=== PATIENT | female | born 1960 | race Hispanic/Latino ===

== ENCOUNTER 2024-01-10 12:01 | Inpatient (IN) | payer OTHER ==
[2024-01-10] MEDS ORDERED: dilTIAZem HCL 25 MG/5 ML VIAL IV ONE (12:23)
[2024-01-10 12:29] LABS: Absolute Lymphocytes (CBC) 1.7 K/uL (0.7-4.9); Absolute Monocytes 0.4 K/uL (0.1-1.3); Absolute Neutrophil 3.9 K/uL (1.8-8.0); Basophils % 0.6 % (0-1.3); Eosinophils % 0.4 % (0-4.4); Hematocrit 39.4 % (36.0-45.0); Lymphocytes % 28.3 % (15.3-44.8); MCH 29.8 pg (27.0-35.0); MCV 90.3 fL (80-100); MPV 8.5 fL (7.6-11.3); Monocytes % 6.7 % (3.3-12.3); Nucleated Red Blood Cells % 0.1 % (0-0); Platelets 268 thou/uL (152-406); RBC Red Blood Cell Count 4.36 M/uL (3.86-4.86); Red Cell Distribution Width 14.4 % (12.1-15.2)
[2024-01-10 12:55] LABS: Albumin 3.3 g/dL (3.4-5.0); Albumin/Globulin Ratio 0.9 (1.1-1.8); Anion Gap 10.9 mEq/L (5.0-15.0); Bilirubin Direct 0.3 mg/dL (0-0.2); Bilirubin Indirect, Calculated 0.5 mg/dL (0.2-0.8); Bilirubin Total 0.8 mg/dL (0.2-1.0); Globulin 3.8 g/dL (2.3-3.5); Magnesium 2.1 mg/dL (1.6-2.4); Potassium 3.9 mEq/L (3.5-5.1); Protein, Total 7.1 g/dL (6.4-8.2); Thyroid Stimulating Hormone 2.84 uIU/mL (0.358-3.740); Troponin High Sensitivity 20.1 pg/mL (<58.9)
--- NOTE | 2024-01-10 13:10 | RAD REPORT ---
EXAM DESCRIPTION: RAD - Chest Single View - 01/10/2024 12:55 pm CLINICAL HISTORY: CHEST PAIN COMPARISON: No comparisons FINDINGS: Lines: None. Lungs: Poorly visualized left lung base likely due to underpenetration. Prominence of the pulmonary i nterstitium. Pleural: Possible left pleural effusion. Cardiac: Cardiomegaly. Mediastinum: Within normal limits. Bones: No acute fractures. Other: None IMPRESSION: Possible pulmonary edema. The left lung base is obscured by underpenetration. Cannot exc lude either an airspace process or pleural effusion.
--- NOTE | 2024-01-10 13:28 | ER ---
Nurse's Notes [facility] Name: Debora Mckeon Age: 63 yrs Sex: Female : 1960 Arrival Date: 01/10/2024 Time: 12:01 Bed 7 Private MD: Diagnosis: New onset A-fib with rapid ventricular rate Presentation: 01/09 12:08 Chief complaint: Patient states: Pt c/o near constant, non-reproducible, non-radiating tl4 midsternal chest pressure since 01/04/24. Pt also c/o increased SOB with activity, nausea, and "dry heaving". Coronavirus screen: At this time, the client does not indicate any symptoms associated with coronavirus-19. Ebola Screen: No symptoms or risks identified at this time. Initial Sepsis Screen: Does the patient meet any 2 criteria? No. Patient's initial sepsis screen is negative. Does the patient have a suspected source of infection? No. Patient's initial sepsis screen is negative. Risk Assessment: Do you want to hurt yourself or someone else? Patient reports no desire to harm self or others. Onset of symptoms was January 04, 2024. 12:08 Method Of Arrival: EMS: [facility] tl4 12:08 Acuity: ARRON 2 tl4 Triage Assessment: 12:12 General: Appears uncomfortable, Behavior is cooperative, restless. Pain: Complains of tl4 pain in chest. EENT: No signs and/or symptoms were reported regarding the EENT system. Neuro: Level of Consciousness is awake, alert, obeys commands, Oriented to person, place, time, situation, Moves all extremities. Full function Gait is steady, Speech is normal, Facial symmetry appears normal. Cardiovascular: Reports chest pain, nausea, shortness of breath, Capillary refill < 3 seconds Patient's skin is warm and dry. Respiratory: Airway is patent Respiratory effort is even, unlabored, Respiratory pattern is regular, symmetrical, Breath sounds are clear bilaterally. GI: Reports nausea, "dry heaving". : No signs and/or symptoms were reported regarding the genitourinary system. Derm: No signs and/or symptoms reported regarding the dermatologic system. Musculoskeletal: No signs and/or symptoms reported regarding the musculoskeletal system. Historical: - Allergies: 13:13 Morphine; tl4 - Home Meds: 14:27 amlodipine 5 mg tablet 1 tab daily [Active]; rosuvastatin 20 mg oral tablet 1 tab daily tl4 [Active]; Furosemide Oral [Active]; - PMHx: 13:13 Cerebrovascular accident; Hypertensive disorder; Anxiety; Depressive disorder; tl4 - Immunization history:: Adult Immunizations unknown. - Infectious Disease History:: Denies. - Social history:: Smoking status: Patient/guardian denies using tobacco, the patient reports quitting approximately 1 years ago. Screenin:24 [facility] ED Fall Risk Assessment (Adult) History of falling in the last 3 months, tl4 including since admission No falls in past 3 months (0 pts) Confusion or Disorientation No (0 pts) Intoxicated or Sedated No (0 pts) Impaired Gait No (0 pts) Mobility Assist Device Used No (0 pt) Altered Elimination No (0 pt) Score/Fall Risk Level 0 - 2 = Low Risk Oriented to surroundings, Maintained a safe environment, Educated pt \\T\\ family on fall prevention, incl call for assistance when getting out of bed, Assessed \\T\\ reinforced patient's understanding of fall precautions. Abuse screen: Denies threats or abuse. Denies injuries from another. Nutritional screening: No deficits noted. Tuberculosis screening: No symptoms or risk factors identified. Assessment: 12:39 Reassessment: Patient is alert, oriented x 3, equal unlabored respirations, skin tl4 warm/dry/pink. Pt states she feels slightly better. 13:12 Reassessment: Patient is alert, oriented x 3, equal unlabored respirations, skin tl4 warm/dry/pink. Patient states feeling better. Pain: Pain does not radiate. Pain began suddenly, 1 week ago. 14:37 Reassessment: Patient and/or family updated on plan of care and expected duration. Pain tl4 level reassessed. Patient is alert, oriented x 3, equal unlabored respirations, skin warm/dry/pink. Patient states feeling better. Vital Signs: 12:08 BP 108 / 89; Pulse 133; Resp 32; Temp 97.9(O); Pulse Ox 96% on R/A; Weight 154.22 kg; tl4 Height 5 ft. 2 in. ; Pain 8/10; 12:30 BP 104 / 61; Pulse 89; Resp 20; Temp 96(O); tl4 13:00 BP 102 / 73; Pulse 101; Resp 24; Pulse Ox 95% on R/A; tl4 13:30 BP 110 / 85; Pulse 105; Resp 18; Pulse Ox 96% on R/A; tl4 14:00 BP 127 / 95; Pulse 106; Resp 22; Pulse Ox 96% ; tl4 14:38 BP 130 / 98; Pulse 108; Resp 22; Temp 98.2(O); Pulse Ox 96% ; Pain 5/10; tl4 12:08 Body Mass Index 62.19 (154.22 kg, 157.48 cm) tl4 12:08 Pain Scale: Adult tl4 14:38 Pain Scale: Adult tl4 ED Course: 12:03 Patient arrived in ED. ph 12:03 Darnell Aguiar MD is Attending Physician. rt 12:06 EKG done, by ED staff, reviewed by Darnell Aguiar MD. tl4 12:12 Initial lab(s) drawn, by me, sent to lab. Inserted saline lock: 22 gauge in right tl4 antecubital area, using aseptic technique. Blood collected. 12:24 Patient has correct armband on for positive identification. Placed in gown. Bed in low tl4 position. Call light in reach. Side rails up X2. Provided Education on: ED process, call sinclair. Client placed on continuous cardiac and pulse oximetry monitoring. NIBP monitoring applied. adult educator on. Door closed. Noise minimized. Moved to private room. Warm blanket given. Pillow given. 12:36 Triage completed. tl4 12:40 TSH Sent. tl4 12:41 Basic Metabolic Panel Sent. tl4 12:41 Magnesium Sent. tl4 12:41 LFT's Sent. tl4 12:41 NT PRO-BNP Sent. tl4 12:41 Troponin HS Sent. tl4 12:55 XRAY Chest (1 view) In Process Unspecified. EDMS 13:28 Anuel Oneill MD is Hospitalizing Provider. rt 14:30 No provider procedures requiring assistance completed. Maintain EMS IV. Dressing tl4 intact. Good blood return noted. Site clean \\T\\ dry. Gauge \\T\\ site: 20g left antecubital. IV is patent, with fluids infusing freely, with good blood return, Flushed Patient admitted, IV remains in place. O2 via room air. 15:16 Arm band placed on left wrist. tl4 Administered Medications: 12:22 Drug: Diltiazem IVP 20 mg IVP once; Over 2 Minutes Route: IVP; Infused Over: 2 mins; tl4 Site: right antecubital; 13:12 Follow up: Response: No adverse reaction; Cardiac rhythm changed tl4 Medication: 12:25 VIS not applicable for this client. tl4 Outcome: 13:28 Decision to Hospitalize by Provider. rt 15:15 Admitted to Med/surg accompanied by tech, via wheelchair, room 232, tl4 15:15 Condition: stable tl4 15:15 Instructed on the need for admit, 15:16 Patient left the ED. tl4 Signatures: Dispatcher [facility] Linnette Almodovar RN RN Darnell Aguiar MD MD rt Syed Jackson RN RN tl4 Corrections: (The following items were deleted from the chart) 12:38 12:08 Chief complaint: Patient states: Pt c/o near constant, non-reproducible, tl4 non-radiating midsternal chest pressure since 01/04/24. Pt also c/o increased SOB with activity. tl4 15:16 15:15 Admitted to tl4 tl4
--- NOTE | 2024-01-10 13:29 | EDPHYS ---
Physician Documentation [facility] Name: Debora Mckeon Age: 63 yrs Sex: Female : 1960 Arrival Date: 01/10/2024 Time: 12:01 Bed 7 Private MD: ED Physician Darnell Aguiar HPI: 01/09 12:35 This 63 yrs old Female presents to ER via Unassigned with complaints of Chest rt Pain. 12:35 Patient presents to the ED with about 1 week of chest pain, shortness of breath. Pain rt described as a tightness. She denies cough, acute complaints, symptoms are moderate in severity, no other aggravating or alleviating factors. Patient found to have A-fib with RVR by EMS, was given aspirin, metoprolol.. Historical: - Allergies: 13:13 Morphine; tl4 - Home Meds: 14:27 amlodipine 5 mg tablet 1 tab daily [Active]; rosuvastatin 20 mg oral tablet 1 tab daily tl4 [Active]; Furosemide Oral [Active]; - PMHx: 13:13 Cerebrovascular accident; Hypertensive disorder; Anxiety; Depressive disorder; tl4 - Immunization history:: Adult Immunizations unknown. - Infectious Disease History:: Denies. - Social history:: Smoking status: Patient/guardian denies using tobacco, the patient reports quitting approximately 1 years ago. ROS: 12:35 Constitutional: Negative for fever, chills, and weight loss, Abdomen/GI: Negative for rt abdominal pain, nausea, vomiting, diarrhea, and constipation, MS/Extremity: Negative for injury and deformity, Skin: Negative for injury, rash, and discoloration, Neuro: Negative for headache, weakness, numbness, tingling, and seizure, 12:35 Cardiovascular: Positive for chest pain, Negative for edema, 12:35 Respiratory: Positive for shortness of breath, Negative for cough, Exam: 12:35 Constitutional: This is a well developed, well nourished patient who is awake, alert, rt and in no acute distress. Chest/axilla: Normal chest wall appearance and motion. Nontender with no deformity. No lesions are appreciated. Cardiovascular: Regular rate and rhythm with a normal S1 and S2. No gallops, murmurs, or rubs. Normal PMI, no JVD. No pulse deficits. Respiratory: Lungs have equal breath sounds bilaterally, clear to auscultation and percussion. No rales, rhonchi or wheezes noted. No increased work of breathing, no retractions or nasal flaring. Abdomen/GI: Soft, non-tender, with normal bowel sounds. No distension or tympany. No guarding or rebound. No evidence of tenderness throughout. Skin: Warm, dry with normal turgor. Normal color with no rashes, no lesions, and no evidence of cellulitis. MS/ Extremity: Pulses equal, no cyanosis. Neurovascular intact. Full, normal range of motion. Neuro: Awake and alert, GCS 15, oriented to person, place, time, and situation. Cranial nerves II-XII grossly intact. Motor strength 5/5 in all extremities. Sensory grossly intact. Cerebellar exam normal. Normal gait. 12:35 ECG was reviewed by the Attending Physician. Vital Signs: 12:08 BP 108 / 89; Pulse 133; Resp 32; Temp 97.9(O); Pulse Ox 96% on R/A; Weight 154.22 kg; tl4 Height 5 ft. 2 in. ; Pain 8/10; 12:30 BP 104 / 61; Pulse 89; Resp 20; Temp 96(O); tl4 13:00 BP 102 / 73; Pulse 101; Resp 24; Pulse Ox 95% on R/A; tl4 13:30 BP 110 / 85; Pulse 105; Resp 18; Pulse Ox 96% on R/A; tl4 14:00 BP 127 / 95; Pulse 106; Resp 22; Pulse Ox 96% ; tl4 14:38 BP 130 / 98; Pulse 108; Resp 22; Temp 98.2(O); Pulse Ox 96% ; Pain 5/10; tl4 12:08 Body Mass Index 62.19 (154.22 kg, 157.48 cm) tl4 12:08 Pain Scale: Adult tl4 14:38 Pain Scale: Adult tl4 MDM: 12:03 Patient medically screened. rt 19:12 Differential diagnosis: A-fib, pneumonia, CHF. Data reviewed: vital signs, nurses rt notes, lab test result(s), EKG, radiologic studies. Consideration of Admission/Observation Patient was admitted/placed on observation. Management of patient was discussed with the following: Hospitalist: Agrees to admit. Independent interpretation of the following test(s) in the Emergency Department X-Ray: My interpretation is Pulmonary edema seen on interpretation of x-ray images. Test considered but Not performed: CT: Low suspicion for PE, CT angiogram not decayed. Care significantly affected by the following chronic conditions: Hypertension. Counseling: I had a detailed discussion with the patient and/or guardian regarding the historical points, exam findings, and any diagnostic results supporting the discharge/admit diagnosis, lab results, radiology results, the need for further work-up and treatment in the hospital. Response to treatment: the patient's symptoms have markedly improved after treatment. 01/09 12:08 Order name: Basic Metabolic Panel; Complete Time: 12:56 rt 01/09 12:08 Order name: CBC with Diff; Complete Time: 12:33 rt 01/09 12:08 Order name: LFT's; Complete Time: 12:56 rt 01/09 12:08 Order name: Magnesium; Complete Time: 12:56 rt 01/09 12:08 Order name: NT PRO-BNP; Complete Time: 12:56 rt 01/09 12:08 Order name: Troponin HS; Complete Time: 12:56 rt 01/09 12:08 Order name: TSH; Complete Time: 12:56 rt 01/09 12:08 Order name: XRAY Chest (1 view); Complete Time: 13:14 rt 01/09 13:57 Order name: CONS Physician Consult EDMS 01/09 12:08 Order name: Cardiac monitoring; Complete Time: 12:40 rt 01/09 12:08 Order name: EKG - Nurse/Tech; Complete Time: 12:40 rt 01/09 12:08 Order name: IV Saline Lock; Complete Time: 12:40 rt 01/09 12:08 Order name: Labs collected and sent; Complete Time: 12:40 rt 01/09 12:08 Order name: O2 Per Protocol; Complete Time: 12:40 rt 01/09 12:08 Order name: O2 Sat Monitoring; Complete Time: 12:40 rt EC:35 Rate is 131 beats/min. Rhythm is regular, A fib with No ectopy, Related ST and T wave rt changes. QRS [place] is Normal. QRS interval is normal. Administered Medications: 12:22 Drug: Diltiazem IVP 20 mg IVP once; Over 2 Minutes Route: IVP; Infused Over: 2 mins; tl4 Site: right antecubital; 13:12 Follow up: Response: No adverse reaction; Cardiac rhythm changed tl4 Disposition: 19:12 Critical Care:. rt Disposition Summary: 01/10/24 13:28 Hospitalization Ordered Notes: Hospitalization Status: Observation rt Provider: Anuel Oneill rt Location: Telemetry/MedSurg (observation) rt Condition: Stable rt Problem: new rt Symptoms: have improved rt Bed/Room Type: Standard rt Room Assignment: 232(01/10/24 14:13) [id number] Diagnosis - New onset A-fib with rapid ventricular rate rt Forms: - Medication Reconciliation Form rt - SBAR form rt - Leadership Thank You Letter rt Critical care time excluding procedures: 19:12 Critical care time: Bedside Care: 30 minutes, Consultation: 5 minutes. Total time: 35 rt minutes Signatures: Dispatcher [employer] Darnell Guzman MD MD rt Maria R Magdaleno [id number] Syed Jackson RN RN tl4 Corrections: (The following items were deleted from the chart) 12:09 12:09 Chest Single View+RAD.RAD.[email or web address] ordered. EDMS EDMS 14:13 13:28 rt [email or web address]
--- NOTE | 2024-01-10 14:47 | P.HP ---
Certification for Inpatient Patient admitted to: Inpatient With expected LOS: <2 Midnights <Germania Hui - Last Filed: 01/11/24 09:59> Patient History Date of Service: 01/11/24 Primary Care Provider: Dr Dodd History of Present Illness: 63-year-old female with past medical Cerebrovascular accident; Hypertensive disorder; Anxiety; Depressive disorder presents emergency room with chest pain. She reports chest pain is substernal, nonradiating, she reports onset 1 week ago. She reports reports symptoms getting progressively worse. She reports associated shortness of breath, shortness of breath worse with exertion, shortness of breath worse when laying flat. She denies history of CHF, she reports lower extremity edema that was worse over the last week. No use of diuretics she denies history of atrial fibrillation, no use of anticoagulation. She reports dizziness, weakness that is chronic from prior CVA, unsteady gait. She denies fever, abdominal pain, denies history of MA, plan to admit for new set onset A-fib RVR, chest pain,. Cardiology to consult, EKG 5 Rate is 131 beats/min. Rhythm is regular, A fib with No ectopy, Related ST and T wave changes. QRS [place] is Normal. QRS interval is analia, treated with Cardizem in the emergency room. 20 mg IV push x 1 vital signs 8 BP 108 / 89; Pulse 133; Resp 32; Temp 97.9(O); Pulse Ox 96% on R/A; Weight 154.22 kg; Height 5 ft. 2 in. ; Pain 8/10; laboratory evaluation elevated BNP 7869, elevated BUN and creatinine 21 creatinine 1.67, unknown baseline transaminitis ALT 65, troponin normal at 20.1 chest x-ray IMPRESSION: Possible pulmonary edema. The left lung base is obscured by underpenetration.exclude either an airspace process or pleural effusion. - Past Medical/Surgical History -: CVA lower extremity weakness -: Hypertension -: New onset A-fib December 2023 -: Depression -: Anxiety -: Knee surgery -: Kidney stone - Social History Smoking Status: Never smoker Alcohol use: Yes CD- Drugs: No Caffeine use: No Place of Residence: Home <Germania Hui - Last Filed: 01/11/24 09:59> Date of Service: 01/10/24 <Anuel Oneill - Last Filed: 01/12/24 03:50> Review of Systems Per HPI <Germania Hui - Last Filed: 01/11/24 09:59> Physical Examination - Physical Exam General: Alert, In no apparent distress, Oriented x3, Mild distress, Obese, Other (Orthopnea) HEENT: Atraumatic, Normocephalic Neck: 2+ carotid pulse no bruit, JVD not distended Respiratory: Normal air movement, Diminished Cardiovascular: Irregular heart rate/rhythm Gastrointestinal: Other (Substernal chest pain, obese) Musculoskeletal: No clubbing Integumentary: No breakdown, No significant lesion Neurological: Normal speech, Normal strength at 5/5 x4 extr - Studies Laboratory Data (last 24 hrs) 01/10/24 01/10/24 12:20 12:20 WBC 6.10 Hgb 13.0 Hct 39.4 Plt Count 268 Sodium 136 Potassium 3.9 BUN 21 H Creatinine 1.37 H Glucose 181 H Magnesium 2.1 Total Bilirubin 0.8 AST 28 ALT 65 H Alkaline Phosphatase 80 <Germania Hui - Last Filed: 01/11/24 09:59> Assessment and Plan - Plan Assessment plan New onset A-fib RVR uncontrolled rate 131 Chest pain rule out MA Elevated troponin Cardiology consult, Cardizem, IV Lopressor, aspirin, nitro, metoprolol twice daily Telemetry, echo, trend troponin Nitro, as needed analgesics, O2 2 L keep sats greater 90 disorder presents emergency room with chest pain. She reports chest pain is substernal, nonradiating, she reports onset 1 week ago. She reports reports symptoms getting progressively worse. She reports associated shortness of breath, shortness of breath worse with exertion, shortness of breath worse when laying flat. She denies history of CHF, she reports lower extremity edema that was worse over the last week. No use of diuretics she denies history of atrial fibrillation, no use of anticoagulation. She reports dizziness, weakness that is chronic from prior CVA, unsteady gait. She denies fever, abdominal pain, denies history of MA, plan to admit for new set onset A-fib RVR, chest pain,. Cardiology to consult, EKG 5 Rate is 131 beats/min. Rhythm is regular, A fib with No ectopy, Related ST and T wave changes. QRS [place] is Normal. QRS interval is analia, treated with Cardizem in the emergency room. 20 mg IV push x 1 vital signs 8 BP 108 / 89; Pulse 133; Resp 32; Temp 97.9(O); Pulse Ox 96% on R/A; Weight 154.22 kg; Height 5 ft. 2 in. ; Pain 8/10; laboratory evaluation elevated BNP 7869, troponin normal at 20.1 chest x-ray IMPRESSION: Possible pulmonary edema. The left lung base is obscured by underpenetration.exclude either an airspace process or pleural effusion. History of CVA cerebrovascular accident with lower extremity Fall precautions, Supportive care Hypertensive disorder Anxiety/Depressive Insomnia Resume appropriate home elevated BUN and creatinine 21 creatinine 1.67, unknown baseline Trend kidney, avoid nephrotoxic medication transaminitis ALT 65 Trend liver enzyme Former smoker quit 1 year ago Occasional alcohol use Morbid obesity Educated on cardiac diet Full code DVT heparin Diet cardiac Disposition Home with son, uses rolling walker as baseline,, no use of home O2 Discharge Plan: Home - Advance Directives Does patient have a Living Will: No Does patient have a Durable POA for Healthcare: No - Code Status/Comfort Care Code Status: Full Code Critical Care: No Time Spent Managing Pts Care (In Minutes): 55 <Germania Hui - Last Filed: 01/11/24 09:59> Date of Service: 01/10/24 Patient chart was reviewed and patient was seen and examined. NOEMÍ history and physical reviewed as well. Agree with the assessment and plan. Patient presented with atrial fibrillation rapid ventricular response. Patient with morbid obesity with possible obstructive sleep apnea. Echocardiogram pending. Cardiology consultation will be done. Patient blood pressure is soft. If patient has not medically cardioverted with beta-shima therapy then will start amiodarone drip. May need RINA with cardioversion. Patient will need anticoagulation. Go ahead and start Eliquis. Most of the MDM was done by myself and plan of care was discussed with NOEMÍ as well as the patient. Plan to discharge once cardiac workup is completed. Anticipated length of stay is 3 to 4 days. <Anuel Oneill - Last Filed: 01/12/24 03:50>
[2024-01-10] MEDS: METOPROLOL TARTRATE 5 MG/5 ML INJ IV STA (15:57)
[2024-01-10] MEDS: HEPARIN 5000 UNIT/ML 1 ML VIAL SQ SCH (16:47)
[2024-01-10] MEDS: MORPHINE 2 MG/ML SYR IV ONE (18:51)
[2024-01-10] MEDS ORDERED: NITROGLYCERIN 0.4 MG/TAB SL PRN (18:58)
[2024-01-10] MEDS: METOPROLOL TAR 25 MG TAB PO SCH (20:13)
[2024-01-10] MEDS: KETOROLAC 30 MG/ML INJ IV PRN (21:13)
[2024-01-10] MEDS: ALPRAZOLAM 0.25 MG TABLET PO PRN (21:13)
[2024-01-10] MEDS: ENOXAPARIN 40 MG/0.4 ML SQ SCH (23:31)
[2024-01-11] MEDS: KETOROLAC 30 MG/ML INJ IV PRN (02:00)
[2024-01-11] MEDS ORDERED: MORPHINE 2 MG/ML SYR IV PRN (02:08)
[2024-01-11 03:37] LABS: Absolute Monocytes 0.6 K/uL (0.1-1.3); Absolute Neutrophil 3.9 K/uL (1.8-8.0); Basophils % 0.6 % (0-1.3); Eosinophils % 0.4 % (0-4.4); Hematocrit 38.3 % (36.0-45.0); Hemoglobin 12.7 g/dL (12.0-15.0); Lymphocytes % 30.1 % (15.3-44.8); MCHC 33.2 g/dL (32.0-36.0); MCV 90.2 fL (80-100); MPV 8.5 fL (7.6-11.3); Monocytes % 9.6 % (3.3-12.3); Neutrophils % 59.3 % (41.7-73.7); Nucleated Red Blood Cells % 0.1 % (0-0); Platelets 236 thou/uL (152-406); RBC Red Blood Cell Count 4.24 M/uL (3.86-4.86); Red Cell Distribution Width 14.5 % (12.1-15.2)
[2024-01-11 03:59] LABS: Anion Gap 7.6 mEq/L (5.0-15.0); Magnesium 2.2 mg/dL (1.6-2.4); Phosphorus 3.9 mg/dL (2.5-4.9); Potassium 4.6 mEq/L (3.5-5.1)
[2024-01-11] MEDS: ASPIRIN 325 MG TAB PO SCH (08:14)
--- NOTE | 2024-01-11 10:03 | P.PN ---
Subjective Date of Service: 01/11/24 Primary Care Provider: Dr Dodd Admitted with chest pain was noted to have A-fib RVR, new onset, uncontrolled, cardiology was consulted and started on p.o./IV metoprolol elevated troponin, BNP appears to be acute heart failure BNP 7860, repeat 11,464, serial troponins negative Diuretics added, nephrology consult for elevated kidney Cardiology following for A-fib - Physical Exam General: Alert, In no apparent distress, Oriented x3, Mild distress, Obese, Other (Orthopnea) HEENT: Atraumatic, Normocephalic Neck: 2+ carotid pulse no bruit, JVD not distended Respiratory: Normal air movement, Diminished Cardiovascular: Irregular heart rate/rhythm Gastrointestinal: Other (Substernal chest pain, obese) Musculoskeletal: No clubbing Integumentary: No breakdown, No significant lesion Neurological: Normal speech, Normal strength at 5/5 x4 extr <Germania Hui - Last Filed: 01/11/24 14:12> Date of Service: 01/11/24 <Anuel Oneill - Last Filed: 01/12/24 03:51> Review of Systems Per HPI <Germania Hui - Last Filed: 01/11/24 14:12> Physical Examination - Vital Signs Temperature: 97.2 F Blood Pressure: 107/82 Pulse: 108 Respirations: 28 Pulse Ox (%): 95 - Studies Laboratory Data (last 24 hrs) 01/10/24 01/10/24 12:20 12:20 WBC 6.10 Hgb 13.0 Hct 39.4 Plt Count 268 Sodium 136 Potassium 3.9 BUN 21 H Creatinine 1.37 H Glucose 181 H Magnesium 2.1 Total Bilirubin 0.8 AST 28 ALT 65 H Alkaline Phosphatase 80 <Germania Hui - Last Filed: 01/11/24 14:12> Assessment And Plan - Plan Assessment plan New onset A-fib RVR uncontrolled rate 131 Chest pain rule out CO Elevated troponin Acute heart failure Cardiology consult, Cardizem, IV Lopressor, aspirin, nitro, metoprolol twice daily Telemetry, echo, trend troponin Nitro, as needed analgesics, O2 2 L keep sats greater 90 disorder presents emergency room with chest pain. She reports chest pain is substernal, nonradiating, she reports onset 1 week ago. She reports reports symptoms getting progressively worse. She reports associated shortness of breath, shortness of breath worse with exertion, shortness of breath worse when laying flat. She denies history of CHF, she reports lower extremity edema that was worse over the last week. No use of diuretics she denies history of atrial fibrillation, no use of anticoagulation. She reports dizziness, weakness that is chronic from prior CVA, unsteady gait. She denies fever, abdominal pain, denies history of CO, plan to admit for new set onset A-fib RVR, chest pain,. Cardiology to consult, EKG 5 Rate is 131 beats/min. Rhythm is regular, A fib with No ectopy, Related ST and T wave changes. QRS [place] is Normal. QRS interval is analia, treated with Cardizem in the emergency room. 20 mg IV push x 1 vital signs 8 BP 108 / 89; Pulse 133; Resp 32; Temp 97.9(O); Pulse Ox 96% on R/A; Weight 154.22 kg; Height 5 ft. 2 in. ; Pain 8/10; laboratory evaluation elevated BNP 7869, troponin normal at 20.1 chest x-ray IMPRESSION: Possible pulmonary edema. The l eft lung base is obscured by underpenetration.exclude either an airspace process or pleural effusion. BNP 7860, 11,464, serial troponins negative, Diamox ordered x 1, nephrology consulted for acute kidney injury likely secondary to prerenal CHF Echo ordered for a.m. History of CVA cerebrovascular accident with lower extremity Fall precautions, Supportive care Hypertensive disorder Anxiety/Depressive Insomnia Resume appropriate home elevated BUN and creatinine 21 creatinine 1.67, unknown baseline likely secondary to prerenal CHF Trend kidney, avoid nephrotoxic medication Nephrology consult transaminitis ALT 65 Trend liver enzyme Former smoker quit 1 year ago Occasional alcohol use Morbid obesity Educated on cardiac diet Full code DVT heparin Diet cardiac Disposition Home with son, uses rolling walker as baseline,, no use of home O2 Discharge Plan: Home - Code Status/Comfort Care Code Status: Full Code Critical Care: No Time Spent Managing PTS Care (In Minutes): 35 <Germania Hui - Last Filed: 01/11/24 14:12>
[2024-01-11] MEDS: ACETAZOLAMIDE 500 MG IV IV SCH (11:00)
[2024-01-11] MEDS: ACETAZOLAMIDE 500 MG IV IV ONE (12:37)
[2024-01-11] MEDS: AMIODARONE HCL 150 MG in D5W 100 ML IV STA (16:06)
[2024-01-11] MEDS: AMIODARONE HCL 900 MG in Dextrose 5%-Water 482 ML IV SCH (16:24)
--- NOTE | 2024-01-11 18:18 | CON ---
Reason For Consultation: Atrial fibrillation. History Of Present Illness: 63-year-old female. History of CVA; hypertension; atrial fibrillation, new onset; depression; anxiety, presented with chest pain, substernal, no radiation on and off for th e past week. Found to be in atrial fibrillation with rapid ventricular response. She was given meto prolol. Blood pressure was on the low side. She was given Cardizem as well, and now she is on amiod arone drip. Denies having any active chest pain. Past Medical History: As outlined above in the HPI. Medications: Refer to reconciliation sheet for detailed list. Allergies: OPIATES, MORPHINE, TRAMADOL. Family History: No premature coronary artery disease or cancer. Social History: Does not smoke or drink. Does not use any drugs. Review of Systems: All systems reviewed and they were negative except as mentioned in the HPI. Physical Examination: Vital Signs: Reviewed. Head and Neck: Pupils are equal, reactive to light. Intact eye movements. No JVD. No cervical lym phadenopathy. Neck is supple. Thyroid is not enlarged. Lungs: Clear to auscultation bilaterally. No rhonchi, wheezing, or crackles. No accessory muscle u se. Heart: Regular rate and rhythm. No extra sounds. Abdomen: Soft, nontender. Bowel sounds positive. No organomegaly. No masses or hernia. No rigidi ty or rebound. Extremities: No clubbing or cyanosis. Positive edema. Neurologic: Alert, awake, oriented x3. No acute focal deficits appreciated. Investigations: NT-proBNP is 11,000. BUN 28, creatinine 1.58, and hemoglobin is 12.7. Assessment And Recommendations: 1.Atrial fibrillation with rapid ventricular response. I agree with the amiodarone at the present t clifford because of the abnormal kidney function. I will continue amiodarone drip load for 24 hours and i f she does not convert to sinus rhythm by tomorrow, to do RINA-guided electrical cardioversion and con tinue Eliquis. 2.Chest pain. Cardiac enzymes are negative, but NT-proBNP is elevated. Obtain an echo and recommen d an exercise nuclear stress test to further evaluate this issue. 3.Elevated NT-proBNP. Obtain a transthoracic echo to further evaluate presence of congestive heart failure and further plan according to above testing. SR/MODL Voice ID: [id number] Report ID: [id number]
[2024-01-11] MEDS: APIXABAN 5 MG TABLET PO SCH (20:08)
[2024-01-11] MEDS: ZOLPIDEM TARTRATE 10 MG TABLET PO PRN (21:18)
[2024-01-11] MEDS: ONDANSETRON 4 MG/2 ML VIAL IV PRN (22:14)
--- NOTE | 2024-01-11 22:32 | CON ---
Date of Consultation: 01/11/2024 Chief Complaint: Abnormal renal function test, acute on chronic kidney injury, cardiorenal syndrome. History Of Present Illness: The patient is a 63-year-old woman with past medical history significant for CVA, hypertensive heart disease, anxiety, and depressive disorder. The patient presented to the hospital because of chest pain. She has had substernal nonradiating chest pain intermittent that started 1 week ago. She reports symptoms of getting progressively worse, associated with shortness of breath and with activities. She denies history of congestive heart failure, although she has history of lower extremity edema. The patient was feeling dizzy, lightheaded. She had unsteady gait due to previous CVA. The patient denies fever, abdominal pain. Denies hematuria, dysuria. Nephrology consultation was requested for elevated BUN and creatinine. The patient has history of acute kidney injury several years ago. She was hospitalized at [facility] in [place] for acute kidney injury and had kidney stone and hydronephrosis. Renal function improved and patient did not require hemodialysis. She was noncompliant with toxicologist's followup with her primary toxicologist in [place]. The patient was found to have atrial fibrillation during this admission and Cardiology is following patient for acute coronary syndrome and atrial fibrillation. Patient was treated with Cardizem for atrial fibrillation with rapid ventricular response associated with chest pain. BNP was elevated up to 7869. Pulse oximeter was 96 on room air. The patient has history of morbid obesity and denies history of diabetes mellitus. Denies history of obstructive sleep apnea. Serum creatinine was 1.67, BUN 21. CT scan of kidney is pending. Chest x-ray showed pulmonary edema. The left lung base was obscured and possible pleural effusion. Past Medical History: CVA, lower extremity weakness, hypertension, new onset of atrial fibrillation in December 2023, depression, anxiety, knee surgery, kidney stone, acute kidney injury during admission several years ago at [facility]. Social History: Denies tobacco, alcohol. Denies drugs. Review of Systems: Per HPI. Physical Examination: General: Alert, not in acute distress. Oriented x3. Obese. Eyes: Anicteric sclerae. EOMI. Ears, Nose, Mouth, and Throat: Oral mucosa moist. No pallor. Neck: Supple. No bruits. Lungs: Diminished breath sounds at bases. Few rhonchi. Heart: S1, S2. Irregularly irregular. GI: No rebound. No guarding. Abdomen: Obese, nontender. No flank tenderness. Extremities: Edema present in both lower extremities and no clubbing. No cyanosis. Neurological: Normal speech. No tremor. Laboratory Work: WBC 6.1, hemoglobin 13, hematocrit 39.4, platelet count 268. Sodium 136, potassium 3.9, BUN 21, creatinine 1.37, glucose 181, magnesium 2.1, total bilirubin 0.8, AST 28, ALT 65, AP 80. Impression And Plan: Acute kidney injury secondary to renal hypoperfusion, cardiorenal syndrome from acute coronary syndrome and atrial fibrillation with rapid ventricular response. The patient was treated with Cardizem, Lopressor, aspirin, nitroglycerin, and metoprolol. The patient is admitted to telemetry floor. The patient has nonoliguric urine output. The patient was found to have pulmonary edema. Recommended to continue Lasix as needed. The patient developed acute kidney injury due to cardiorenal syndrome . The patient will have renal US done rule out obstructive uropathy. Patient has history of kidney stone and she was noncompliant with followup with Nephrology and Urology. Recommended to rule out urinary tract infection, screen for proteinuria, and screen for diabetes. Morbid obesity, the patient will have cardiac workup to rule out pulmonary hypertension. The patient has chronic edema which may correspond with pulmonary hypertension. History of CVA per Primary Team, hypertensive heart and kidney disease, and monitor blood pressure. Adjust medication. In view of congestive heart failure, patient will continue beta shima. Morbid obesity, educated on cardiac diet per Primary Team. BRAD/CATHERINE Voice ID: [id number] Report ID: [id number] BRYANT
[2024-01-12] MEDS: FUROSEMIDE 40 MG/4 ML VIAL IV ONE (02:19)
--- NOTE | 2024-01-12 02:26 | P.PN ---
Date of Service: 01/12/24 Called to see the patient Patient had coughing spells and that she has got short of breath as well as vomiting Blood pressure was not recordable Tachycardia noted Patient is on amiodarone for new onset A-fib Elevated BNP found On examination patient had respiratory distress along with bibasilar crackles Patient was moved to ICU for closer monitoring ABG and x-ray chest was ordered Follow-up with labs Started on Lasix 40 mg Echocardiogram pending ABG shows hypoxemia, oxygen supplementation, BP 95/76 Will continue Lasix
[2024-01-12] MEDS ORDERED: SODIUM CHLORIDE 0.9% 10ML INJ IV PRN (02:27)
[2024-01-12 02:40] LABS: Arterial Blood Carboxyhemoglob 0.7 % (0-1.5); Blood Gas Oxyhemoglobin 79.7 % (94-97); Blood Gas THB 14.1 g/dl (12-18)
[2024-01-12] MEDS: PANTOPRAZOLE 40 MG INJ IVP SCH (02:53)
[2024-01-12 03:22] LABS: Absolute Lymphocytes (CBC) 1.4 K/uL (0.7-4.9); Absolute Monocytes 0.4 K/uL (0.1-1.3); Absolute Neutrophil 5.6 K/uL (1.8-8.0); Basophils % 0.5 % (0-1.3); Eosinophils % 0.2 % (0-4.4); Hematocrit 39.9 % (36.0-45.0); Hemoglobin 13.1 g/dL (12.0-15.0); Lymphocytes % 18.5 % (15.3-44.8); MCH 29.8 pg (27.0-35.0); MCHC 32.8 g/dL (32.0-36.0); MCV 90.7 fL (80-100); MPV 8.4 fL (7.6-11.3); Monocytes % 5.6 % (3.3-12.3); Neutrophils % 75.2 % (41.7-73.7); Nucleated Red Blood Cells % 0.2 % (0-0); Platelets 228 thou/uL (152-406); Red Cell Distribution Width 14.5 % (12.1-15.2)
[2024-01-12 03:24] LABS: PT Prothrombin Time 15.3 SECONDS (9.5-12.5); PTT, Activated Partial Thromb 30.7 SECONDS (24.3-36.9); Protime INR 1.4
[2024-01-12 03:38] LABS: Albumin 3.2 g/dL (3.4-5.0); Albumin/Globulin Ratio 0.8 (1.1-1.8); Anion Gap 11.6 mEq/L (5.0-15.0); Bilirubin Total 0.8 mg/dL (0.2-1.0); Globulin 3.9 g/dL (2.3-3.5); Magnesium 2.4 mg/dL (1.6-2.4); Phosphorus 5.8 mg/dL (2.5-4.9); Potassium 4.6 mEq/L (3.5-5.1); Protein, Total 7.1 g/dL (6.4-8.2); Troponin High Sensitivity 24.3 pg/mL (<58.9)
[2024-01-12 05:33] LABS: UR PROTEIN 26.9 mg/dL (<11.9); Urine Protein/Creatinine Ratio 0.18 ratio (<0.15)
[2024-01-12 05:48] LABS: Specific Gravity 1.017 (1.005-1.030); Sqamous Epithelial <5 /HPF (None Seen); Urine Bacteria None Seen /HPF (<20); Urine Bilirubin NEGATIVE (Negative); Urine Blood Negative (Negative); Urine Clarity Turbid (Clear); Urine Color Yellow (Yellow); Urine Culture Reflex Order NOT NEEDED; Urine Glucose NEGATIVE (Negative); Urine Ketones NEGATIVE (Negative); Urine Micro Reflex YN NO BILL MICROSCOPIC; Urine Nitrite NEGATIVE (Negative); Urine Protein TRACE (Negative); Urine RBC None Seen /HPF (None Seen); Urine Urobilinogen Normal (Normal); Urine WBC <5 /HPF (<5)
--- NOTE | 2024-01-12 07:27 | RAD REPORT ---
EXAM DESCRIPTION: US - Renal Ultrasound-Complete - 01/12/2024 5:14 am CLINICAL HISTORY: ckd 3 , octavio COMPARISON: No comparisons FINDINGS: Both kidneys are normal in size, shape and echotexture. The right kidney measures 8.1 x 4.8 x 4.2 cm. No hydronephrosis, focal mass or perinephric fluid. The left kidney measures 9.1 x 4.6 x 4.4 cm. No hydronephrosis, focal mass or perinephric fluid. The urinary bladder is incompletely visualized due to bowel gas. IMPRESSION: Unremarkable renal sonogram.
[2024-01-12] MEDS: FUROSEMIDE 40 MG/4 ML VIAL IV SCH (08:04)
[2024-01-12] MEDS: NOREPINEPHRINE BITARTRATE/D5W 4 MG/250 ML BAG IV ONE (10:33)
--- NOTE | 2024-01-12 10:39 | P.PN ---
Subjective Date of Service: 01/12/24 Primary Care Provider: Dr Dodd Pt is resting comfortably in bed. She was somnolent but arousable. Cardiology plans to do cardioversion but her BP is hypotensive. Will start pressor. Pt was transferred to the ICU for close observation after pt had SOB, nausea, voiting, tachycardia and hypotension. No other complaints. Review of Systems General: Unremarkable Eyes: Unremarkable ENT: Unremarkable Respiratory: SOB with Excertion Cardiovascular: Palpitations Gastrointestinal: Vomiting Genitourinary: Unremarkable Musculoskeletal: Unremarkable Integumentary: Unremarkable Neurological: Unremarkable Lymphatics: Unremarkable Physical Examination - Vital Signs Temperature: 97.5 F Blood Pressure: 96/78 Pulse: 112 Respirations: 21 Pulse Ox (%): 95 - Physical Exam General: Alert, In no apparent distress, Oriented x3 HEENT: Atraumatic, Normocephalic, PERRLA Neck: Supple, 2+ carotid pulse no bruit, JVD not distended Respiratory: Clear to auscultation bilaterally, Normal air movement, Diminished Cardiovascular: No edema, Normal pulses, Irregular heart rate/rhythm Capillary refill: <2 Seconds Gastrointestinal: Normal bowel sounds, Soft and benign, Non-distended Musculoskeletal: No clubbing, No swelling Integumentary: No rashes, No breakdown Neurological: Normal gait, Normal speech, Normal strength at 5/5 x4 extr Lymphatics: No axilla or inguinal lymphadenopathy Assessment And Plan - Plan New onset A-fib RVR: Will continue amiodarone drip, eliquis, and telemetry. Cardiology planed to do RINA cardioversion but her BP is hypotensive. Elevated Troponin: Will r/o ACS. Likely due to demand ischemia. Cardiology is following. [place]: [place] [address]. Echo shows EF < 20%. Will resume lasix if MAP > 65. Cardiology is following. Will transfer pt to [facility] History of CVA: Will continue aspirin and statin. Continue fall precautions. Cardiogenic shock/ Hypotension: Will hold BP meds. Started pressors. Will transfer pt to a higher level care. Dr. Hills wants pt to be transferred to [facility] Anxiety/depression: Will continue anxiolytics and antidepressants Insomnia: Will continue prn melatonin. MAXIM on chronic kidney disease stage III: Cr is 1.93. Will avoid nephrotoxins and monitor renal function. Nephrology is following Elevated liver enzymes: Will monitor LFTs while on amiodarone Tobacco abuse: Pt is a former smoker quit 1 year ago. She was advised to quit smoking. Morbid obesity/possible obstructive sleep apnea: Pt was advised to lose weight. She has outpatient bariatric follow-up. May need to start medications for weight loss in the setting of heart failure DVT ppx: heparin Dispo: Pending hospital course. Pt lives at home with her son and ambulates with a rolling walker. Code: full
[2024-01-12] MEDS ORDERED: NOREPINEPHRINE 4 MG in D5W 250 ML IV SCH (11:00)
[2024-01-12 11:04] LABS: Arterial Blood Carboxyhemoglob 0.8 % (0-1.5); Blood Gas Oxyhemoglobin 94.9 % (94-97); Blood Gas THB 13.8 g/dl (12-18); Blood O2 Saturation 96.7 % (92-98.5)
--- NOTE | 2024-01-12 11:17 | P.PN ---
Subjective Date of Service: 01/12/24 Primary Care Provider: Dr Dodd Subjective: New changes (Patient is hypotensive, less responisve this morning) Review of Systems 10-point ROS is otherwise unremarkable Physical Examination - Vital Signs Temperature: 97.5 F Blood Pressure: 96/78 Pulse: 112 Respirations: 21 Pulse Ox (%): 95 - Physical Exam General: Mild distress (open eyees to command but will easily fall down to sleep), Moderate distress HEENT: Atraumatic Neck: Supple Respiratory: Crackles/rales Cardiovascular: Edema, Irregular heart rate/rhythm Gastrointestinal: Normal bowel sounds Assessment And Plan - Current Problems (Diagnosis) (1) Acute on chronic heart failure Current Visit: Yes Status: Acute Plan: patient is pending an echo continue diuresis with Lasix 40 mg IV TID (Hold if MAP is less than 65) Continue to monitor input and output. Correct electrolytes. (2) Atrial fibrillation Current Visit: Yes Status: Acute Plan: Patient is on amiodarone drip, tired to do DCCV today but patient BP is too soft to tolerate sedation, HR is not too fast to cause her to be hypotensive so advise to look for other reasons and if patient is in acute CHF then DCCV at this point can through her into cardiogenic shock. follow up on echo continue Amiodarone continue Kathleen (3) HTN (hypertension) Current Visit: Yes Status: Acute Plan: D/C lopressor as patient BP is low.
--- NOTE | 2024-01-12 12:20 | EKG ---
Test Date: 2024-01-12 Test Time: 02:25:02 [facility] Aide: 15 MEASUREMENT RESULTS: Intervals: Rate: 118 MT: QRSD: 132 QT: 290 QTc: 406 [place]: P: MT: QRS: 96 T: 110 INTERPRETIVE STATEMENTS: Atrial flutter with variable AV block Rightward axis Nonspecific intraventricular block Nonspecific T wave abnormality Abnormal ECG Compared to ECG 01/11/2024 01:56:21 Right-axis deviation now present T-wave abnormality now present Atrial fibrillation no longer present Right bundle-branch block no longer present Electronically Signed On 01-12-24 12:19:24 CDT by Aurelio Leon
[2024-01-12] MEDS: MIDODRINE HCL 5 MG TABLET PO SCH (12:23)
--- NOTE | 2024-01-12 12:24 | EKG ---
Test Date: 2024-01-11 Test Time: 01:56:21 Airplane Technician: VIPUL MEASUREMENT RESULTS: Intervals: Rate: 111 UT: QRSD: 130 QT: 304 QTc: 413 [place]: P: UT: QRS: 97 T: 129 INTERPRETIVE STATEMENTS: Atrial fibrillation with rapid ventricular response Right bundle branch block Abnormal ECG Compared to ECG 01/10/2024 19:50:30 No significant changes Electronically Signed On 01-12-24 12:21:53 CDT by Aurelio Leon
--- NOTE | 2024-01-12 12:25 | EKG ---
Test Date: 2024-01-10 Test Time: 19:50:30 [employer] Combination Teacher: SREG MEASUREMENT RESULTS: Intervals: Rate: 132 ME: QRSD: 126 QT: 276 QTc: 408 [place]: P: ME: QRS: 91 T: 148 INTERPRETIVE STATEMENTS: Atrial fibrillation with rapid ventricular response Right bundle branch block Abnormal ECG Compared to ECG 01/10/2024 12:06:01 Right bundle-branch block now present T-wave abnormality no longer present Electronically Signed On 01-12-24 12:22:27 CDT by Aurelio Leon
--- NOTE | 2024-01-12 12:27 | EKG ---
Test Date: 2024-01-10 Test Time: 12:06:01 Dairy Bar Manager: TL MEASUREMENT RESULTS: Intervals: Rate: 131 GA: QRSD: 128 QT: 358 QTc: 528 [place]: P: GA: QRS: 91 T: 115 INTERPRETIVE STATEMENTS: Atrial fibrillation Nonspecific intraventricular block Nonspecific T wave abnormality, probably digitalis effect Abnormal ECG No previous ECG available for comparison Electronically Signed On 01-12-24 12:22:48 CDT by Aurelio Leon
--- NOTE | 2024-01-12 14:31 | RAD REPORT ---
EXAM DESCRIPTION: XR Chest 1 View AP 01/12/2024 at 3: 21 AM CLINICAL HISTORY: Shortness of breath COMPARISON: Chest 1 View AP 01/10/2024 report without image TECHNIQUE: Chest 1 View AP FINDINGS: Evaluation more difficult due to patient body habitus. Moderate decreased inspiration (decreased lung volumes) makes evaluation more difficult and may accen tuate heart size and pulmonary vascularity. Trachea midline. Heart size appears upper limits normal and may be partly due to portable AP technique and decreased i nspiration. Mild diffuse bilateral interstitial lung prominence. Possible, dense, left lower lung/chest opacity. No significant pleural effusion or pneumothorax. Bones unremarkable. IMPRESSION: 1. Mild diffuse bilateral interstitial lung prominence. Causes include asthma, bronchitis, interstitial pulmonary edema, pulmonary fibrosis, viral infection, and interstitial bacterial infection. 2. Possible, dense, left lower lung/chest opacity. Causes include airspace pulmonary edema, atelectasis, pleural effusion, and infection. Follow up chest radiograph 2 views (PA and lateral) in upright position with full inspiration in radi ology department may be helpful. Electronically signed by: William Fernandez MD 01/12/2024 05:58 AM CDT Due to temporary technical issues with the PACS/Fluency reporting system, reports are being signed by the in house radiologist without review as a courtesy to ensure prompt reporting. The interpreting r adiologist is fully responsible for the content of the report.
--- NOTE | 2024-01-12 16:00 | P.DS ---
Admission Date: 01/10/24 Discharge Date: 01/12/24 Primary Care Provider: Dr Dodd Disposition: TRANSFER TO [facility] Discharge Condition: FAIR Brief History of Present Illness: 63-year-old female with past medical Cerebrovascular accident; Hypertensive disorder; Anxiety; Depressive disorder presents emergency room with chest pain. She reports chest pain is substernal, nonradiating, she reports onset 1 week ago. She reports reports symptoms getting progressively worse. She reports associated shortness of breath, shortness of breath worse with exertion, shortness of breath worse when laying flat. She denies history of CHF , she reports lower extremity edema that was worse over the last week. No use of diuretics she denies history of atrial fibrillation, no use of anticoagulation. She reports dizziness, weakness that is chronic from prior CVA, unsteady gait. She denies fever, abdominal pain, denies history of PA, plan to admit for new set onset A-fib RVR, chest pain,. Cardiology to consult, EKG 5 Rate is 131 beats/min. Rhythm is regular, A fib with No ectopy, Related ST and T wave changes. QRS [place] is Normal. QRS interval is analia, treated with Cardizem in the emergency room. 20 mg IV push x 1 vital signs 8 BP 108 / 89; Pulse 133; Resp 32; Temp 97.9(O); Pulse Ox 96% on R/A; Weight 154.22 kg; Height 5 ft. 2 in. ; Pain 8/10; laboratory evaluation elevated BNP 7869, elevated BUN and creatinine 21 creatinine 1.67, unknown baseline transaminitis ALT 65, troponin normal at 20.1 chest x-ray IMPRESSION: Possible pulmonary edema. The left lung base is obscured by underpenetration.exclude either an airspace process or pleural effusion. Hospital Course: Pt is a 63yo female with past medical history of cerebrovascular accident, Hypertensive disorder, Anxiety, and Depressive disorder who presented with chest pain. The chest pain was substernal, nonradiating in nature. It started 1 week before this admission and progressively worsened to be associated with SOB, dizziness, weakness and leg edema. On admission, p presented with new onset A. fib with RVR. EKG showed HR of 131without any ST changes. LAb studies showed elevated BNP 7869, elevated BUN and creatinine 21 creatinine 1.67, unknown baseline transaminitis ALT 65, troponin normal at 20.1. CXR showed possible pulmonary edema. While inpatient, rapid response was called because of tachycardia and SOB. She was transferred to the ICu for higher level of care. We started amiodarone while waiting for cardiology eval. Pt was not able to do RINA cardioversion due to hypotension. Echo showed EF 10 - 20%. Cardiology recomm ended transfer to [facility] for cardiogenic shock treatment. We continued home meds for other chronic medical problems. She was in fair condition prior to discharge. Vital Signs/Physical Exam: Temp Pulse Resp BP Pulse Ox 97.5 F 112 H 21 H 96/78 95 01/12/24 15:29 01/12/24 15:29 01/12/24 15:29 01/12/24 15:29 01/12/24 15:29 Laboratory Data at Discharge: WBC Cancelled 01/12/24 05:00 Hgb Cancelled 01/12/24 05:00 Hct Cancelled 01/12/24 05:00 Plt Count Cancelled 01/12/24 05:00 PT 15.3 SECONDS (9.5-12.5) H 01/12/24 03:05 INR 1.40 01/12/24 03:05 APTT 30.7 SECONDS (24.3-36.9) 01/12/24 03:05 Sodium Cancelled 01/12/24 Unknown Potassium Cancelled 01/12/24 Unknown BUN Cancelled 01/12/24 Unknown Creatinine Cancelled 01/12/24 Unknown Glucose Cancelled 01/12/24 Unknown Phosphorus 5.8 mg/dL (2.5-4.9) H 01/12/24 03:05 Magnesium Cancelled 01/12/24 05:00 Total Bilirubin Cancelled 01/12/24 Unknown AST Cancelled 01/12/24 Unknown ALT Cancelled 01/12/24 Unknown Alkaline Phosphatase Cancelled 01/12/24 Unknown Triglycerides 61 mg/dL (<150) 01/11/24 03:11 Cholesterol 77 mg/dL (<200) 01/11/24 03:11 HDL Cholesterol 47 mg/dL (40-60) 01/11/24 03:11 Cholesterol/HDL Ratio 1.64 01/11/24 03:11 Home Medications: Amlodipine Besylate [Norvasc] 5 mg PO DAILY 01/10/24 Rosuvastatin [Crestor*] 20 mg PO BEDTIME 01/10/24 Physician Discharge Instructions: Transfer to [facility] for further evaluation of cardiogenic shock. Follow up with PCP and Build And Release Manager upon dc from the hospital Diet: AHA Activity: Ad honey Followup: Candace Spencer [Primary Care Provider] -
[2024-01-12] MEDS: AMIODARONE HCL 900 MG in Dextrose 5%-Water 482 ML IV SCH (17:01)
[2024-01-12] MEDS: Mupirocin NASAL 2 APPL/1 GM TUBE NAS SCH (17:02)
--- NOTE | 2024-01-12 17:07 | RAD REPORT ---
EXAM DESCRIPTION: RAD - Chest Single View - 01/12/2024 5:03 pm CLINICAL HISTORY: Device placement PICC line placement IMPRESSION: PICC line with its tip in the distal superior vena cava
[2024-01-12] MEDS: ATORVASTATIN 20 MG TAB PO SCH (20:36)
[2024-01-12] MEDS: NOREPINEPHRINE 8 MG in D5W 500 ML IV SCH (20:37)
[2024-01-13 04:56] LABS: Absolute Basophils 0.1 K/uL (0-0.5); Absolute Monocytes 0.6 K/uL (0.1-1.3); Absolute Neutrophil 5.8 K/uL (1.8-8.0); Basophils % 0.6 % (0-1.3); Eosinophils % 0.3 % (0-4.4); Lymphocytes % 23.3 % (15.3-44.8); MCH 29.4 pg (27.0-35.0); MCHC 32.6 g/dL (32.0-36.0); MCV 90.2 fL (80-100); MPV 8.3 fL (7.6-11.3); Monocytes % 7.2 % (3.3-12.3); Neutrophils % 68.6 % (41.7-73.7); Nucleated Red Blood Cells % 0.1 % (0-0); Platelets 246 thou/uL (152-406); RBC Red Blood Cell Count 4.43 M/uL (3.86-4.86); Red Cell Distribution Width 14.4 % (12.1-15.2)
[2024-01-13 05:22] LABS: Albumin 3.1 g/dL (3.4-5.0); Albumin/Globulin Ratio 0.8 (1.1-1.8); Anion Gap 11.3 mEq/L (5.0-15.0); Bilirubin Direct 0.4 mg/dL (0-0.2); Bilirubin Indirect, Calculated 0.7 mg/dL (0.2-0.8); Bilirubin Total 1.1 mg/dL (0.2-1.0); Globulin 3.9 g/dL (2.3-3.5); Magnesium 2.1 mg/dL (1.6-2.4); Potassium 3.3 mEq/L (3.5-5.1)
--- NOTE | 2024-01-13 06:57 | ECHO ---
HEIGHT: 5 ft 2 in WEIGHT: 327 lb 0 oz DATE OF STUDY: 01/12/[address]: Germania Hui 2-DIMENSIONAL: YES M.MODE: YES DOPPLER: YES COLOR FLOW: YES TDS: PORTABLE: YES DEFINITY: BUBBLE STUDY: DIAGNOSIS: ACUTE HEART FAILURE CARDIAC HISTORY: CATHERIZATION: SURGERY: PROSTHETIC VALVE: PACEMAKER: MEASUREMENTS (cm) DIASTOLIC (NORMALS) SYSTOLIC (NORMALS) IVSd 1.1 (0.6-1.2) LA Diam 5.1 (1.9-4.0) LVEF 20-25% LVIDd 5.3 (3.5-5.7) LVIDs 5.0 (2.0-3.5) %FS 6% LVPWd 1.3 (0.6-1.2) Ao Diam 2.6 (2.0-3.7) 2 DIMENSIONAL ASSESSMENT: RIGHT ATRIUM: NORMAL LEFT ATRIUM: SEVERELY DILATED RIGHT VENTRICLE: NORMAL LEFT VENTRICLE: DEPRESSED EJECTION FRACTION TRICUSPID VALVE: MODERATE TRICUSPID REGURGITATION MITRAL VALVE: MODERATE TO SEVERE MITRAL REGURGITATION PULMONIC VALVE: MILD PULMONIC INSUFFICIENCY AORTIC VALVE: NORMAL PERICARDIAL EFFUSION: NONE AORTIC ROOT: NORMAL LEFT VENTRICULAR WALL MOTION: SEVERE GLOBAL HYPOKINESIS DOPPLER/COLOR FLOW: SEE BELOW COMMENTS: 1. SEVERELY DEPRESSED LEFT VENTRICULAR EJECTION FRACTION 20-25% 2. SEVERE GLOBAL HYPOKINESIS 3. MODERATE TO SEVERE MITRAL REGURGITATION 4. MODERATE TRICUSPID REGURGITATION TECHNOLOGIST: KIM CARABALLO
--- NOTE | 2024-01-13 16:27 | PN ---
Date of Progress Note: 01/13/2024 Subjective: No change in clinical status. Continue with pressor support. We plan to transfer to [facility] for cardiac catheterization. Creatinine slightly elevated today. Physical Examination: Vital Signs: Pulse rate 95, blood pressure 116/78. General: Awake, somnolent. Neck: Supple. No elevated JVD. Heart: Regular rate and rhythm. Normal S1, S2. Chest: Clear to auscultation bilaterally. No rales or wheezes. Abdomen: Soft and nontender. Extremities: Trace edema. Labs: White count 8.5, hemoglobin 13, platelets 246. Sodium 136, potassium 3.3, BUN 42, creatinine 1.7. Calcium 7.8, ALT 107, AST 168. Assessment And Plan: This is a 63-year-old woman with past medical history of heart failure, reduced ejection fraction of 10%, chronic kidney disease, cerebrovascular accident, who was admitted for con gestive heart failure exacerbation. Started on diuretics. The patient remains hypotensive and she r equires pressor support. We plan to transfer for higher level of care. 1.Acute kidney injury due to cardiorenal syndrome. Currently creatinine is stable. Continue diuret ic. Renal dose medication. 2.Cardiogenic shock, on Levophed. We plan to transfer for higher level of care for possible cardiac catheterization. 3.Atrial fibrillation, off amiodarone drip, rate controlled right now, continue on Eliquis. 4.Heart failure, reduced ejection fraction. Continue pressor support and midodrine. 5.Elevated LFTs, likely due to shock liver. Continue to monitor. Thanks for allowing me to participate in the patient's care. Total time I spent 55 minutes including documentation, reviewing labs, and discussing with the patient and medical staff. JOHN/CATHERINE Voice ID: [id number] Report ID: [id number]
--- NOTE | 2024-01-13 20:03 | PN ---
Date of Progress Note: 01/12/2024 Chief Complaint: Acute on chronic kidney injury, cardiorenal syndrome, renal function has declined. The patient was transferred to ICU because of atrial fibrillation with rapid ventricular response. Creatinine level has risen since yesterday. Urine output remains nonoliguric. The patient is a 63-year-old woman with past medical history significant for CVA, hypertensive heart disease, anxiety, depressive disorder, history of severe acute kidney injury due to acute obstructive uropathy secondary to stone. She did not require dialysis, but she had advanced acute kidney injury and subsequently renal function improved. Nephrology consultation was requested for elevated creatinine level, kidney function has declined since yesterday. The patient has cardiorenal syndrome and Cardiology is consulted for atrial fibrillation with rapid ventricular response. BNP is up to 7869. The patient has had obstructive sleep apnea. Chest x-ray showed pulmonary edema. Review of Systems: The patient has chest pain. She is complaining of palpitation. She denies headache or vision changes. Ears, Nose, Mouth, and Throat, benign. She denies vision changes. Physical Examination: Eyes: EOMI. Neck: Supple. No JVD. Heart: S1, S2. Irregularly irregular. Lungs: Coarse breath sounds bilaterally. Abdomen: Soft, benign, nontender, obese. Extremities: Edema present in both legs. Impression And Plan: 1. Acute kidney injury secondary to cardiorenal syndrome from acute coronary syndrome and atrial fibrillation with rapid ventricular response. Renal function has declined. The patient is on IV drip for atrial fibrillation with rapid ventricular response. The patient has nonoliguric urine output. Continue Lasix as needed for congestive heart failure. The patient was found to have pulmonary edema. Continue low-sodium diet, p.o. fluid restriction and lasix. 2. Renal ultrasound did not show obstructive uropathy. The patient has significant history of severe kidney failure due to obstructive uropathy and acute tubular necrosis. Plan is to re-evaluate renal ultrasound to rule out hydronephrosis to screen for proteinuria and to check for any evidence of nephritis. Urinalysis will be done to check for active urinary sediment. The patient has history of CVA and hypertensive heart disease. Continue recommendation from primary team. Currently, the patient is on IV drip for atrial fibrillation with rapid ventricular response. Continue to monitor blood pressure closely. BRAD/CATHERINE Voice ID: [id number] Report ID: [id number] MTDD
--- NOTE | 2024-01-13 20:18 | PN ---
Date of Progress Note: 01/13/2024 Subjective: The patient was seen by bedside, doing better today, mental status is back to normal. Review of Systems: There is no chest pain. She has shortness of breath, generalized weakness and orthopnea, lower extre mity edema. No nausea, vomiting, diarrhea. No abdominal pain. All other systems reviewed, they are negative. Physical Examination: Vital Signs: Reviewed. Head and Neck: Pupils are equal, reactive to light. Intact eye movements. No JVD. No cervical lym phadenopathy. Neck is supple. Thyroid is not enlarged. Lungs: Clear to auscultation bilaterally. No rhonchi, wheezing, or crackles. No accessory muscle u se. Heart: Irregularly irregular. No extra sounds. Abdomen: Soft, nontender. Bowel sounds positive. No organomegaly. No masses or hernia. No rigidi ty or rebound. Extremities: No edema, clubbing, or cyanosis. Intact pulses. Skin: No rash or nodule. Neurologic: Alert, awake, oriented x3. No acute focal deficits appreciated. Investigations: BUN 42, creatinine 1.79. Troponins are negative and hemoglobin is 13. Assessment/recommendation: 1.Atrial fibrillation with rapid ventricular response, on amiodarone, to be continued and continue E liquis. I will add metoprolol if she can tolerate it. She will need RINA-guided cardioversion when s he is more hemodynamically stable. However, on echo, her left atrium is severely dilated, so cardiov ersion might not work and she might need future ablation. 2.Severe systolic heart failure. Not known to have history of congestive heart failure and with blo od pressure being low and altered mental status suggestive of cardiogenic shock, now on pressors, doi ng better. I discussed the case with Cardiology Team at [facility] and the context of the patient for advanced heart failure evaluation. As the patient will benefit significantly from restoring sinus rhythm, this could be tachy-induced cardiomyopathy. 3.Acute respiratory failure, due to which acute congestive heart failure, on IV Lasix. Continue as tolerated. SR/MODL Voice ID: [id number] Report ID: [id number]
--- NOTE | 2024-01-13 21:54 | P.PN ---
Subjective Date of Service: 01/13/24 Primary Care Provider: Dr Dodd Pt is resting comfortably in bed. She is somnolent but arousable. Still getting levophed and amiodarone drip. Pt is waiting for a bed to become available at [facility] before she transfers. No other complaints. Review of Systems General: Weakness Eyes: Unremarkable ENT: Unremarkable Respiratory: SOB with Excertion Cardiovascular: Unremarkable Gastrointestinal: Unremarkable Genitourinary: Unremarkable Musculoskeletal: Unremarkable Integumentary: Unremarkable Neurological: Unremarkable Lymphatics: Unremarkable Physical Examination - Vital Signs Temperature: 97.6 F Blood Pressure: 94/67 Pulse: 93 Respirations: 20 Pulse Ox (%): 96 - Physical Exam General: Alert, In no apparent distress, Oriented x2, Obese HEENT: Atraumatic, Normocephalic Neck: Supple, 2+ carotid pulse no bruit Respiratory: Clear to auscultation bilaterally, Normal air movement Cardiovascular: Normal pulses, Regular rate/rhythm, Normal S1 S2 Capillary refill: <2 Seconds Gastrointestinal: Normal bowel sounds, Soft and benign, Non-distended Musculoskeletal: No clubbing, No swelling Integumentary: No breakdown, No significant lesion Neurological: Normal strength at 5/5 x4 extr, Normal tone Lymphatics: No axilla or inguinal lymphadenopathy Assessment And Plan - Plan New onset A-fib RVR: Will continue amiodarone drip, eliquis, and telemetry. Cardiology planned to do RINA cardioversion but her BP was hypotensive. Elevated Troponin: Will r/o ACS. Likely due to demand ischemia. Cardiology is following. [place] [address]. Echo shows EF < 20%. Will resume lasix if MAP > 65. Cardiology is following. Will transfer pt to [facility] History of CVA: Will continue aspirin and statin. Continue fall precautions. Cardiogenic shock/ Hypotension: Will hold BP meds. Continue pressor. Will transfer pt to a higher level care. Dr. Hills wants pt to be transferred to [facility] Anxiety/depression: Will continue anxiolytics and antidepressants Insomnia: Will continue prn melatonin. Hypokalemia: K is 3.3. Will replate and monitor MAXIM on chronic kidney disease stage III: Cr is 1.79 <- 1.93. Will avoid nephrotoxins and monitor renal function. Nephrology is following Elevated liver enzymes: Will monitor LFTs while on amiodarone Tobacco abuse: Pt is a former smoker quit 1 year ago. She was advised to quit smoking. Morbid obesity/possible obstructive sleep apnea: Pt was advised to lose weight. She has outpatient bariatric follow-up. May need to start medications for weight loss in the setting of heart failure DVT ppx: heparin Dispo: Pending hospital course. Pt lives at home with her son and ambulates with a rolling walker. Waiting for a bed to become available at [facility]. Code: full
[2024-01-14 06:45] VITALS: BMI 59.2
[2024-01-14] MEDS: KCL 20 MEQ/100 mL IVPB 20 MEQ/100 ML BAG IV SCH (09:22)
--- NOTE | 2024-01-14 10:35 | P.PN ---
Subjective Date of Service: 01/14/24 Primary Care Provider: Dr Dodd Pt is resting comfortably in bed. She is more alert and interactive today. Still getting levophed and amiodarone drip. Pt is waiting for a bed to become available at [facility] before she transfers. No other complaints. Review of Systems General: Weakness Eyes: Unremarkable ENT: Unremarkable Respiratory: Unremarkable Cardiovascular: Unremarkable Gastrointestinal: Unremarkable Genitourinary: Unremarkable Musculoskeletal: Unremarkable Integumentary: Unremarkable Neurological: Unremarkable Lymphatics: Unremarkable Physical Examination - Vital Signs Temperature: 97.0 F Blood Pressure: 88/61 Pulse: 101 Respirations: 20 Pulse Ox (%): 92 - Physical Exam General: Alert, In no apparent distress, Oriented x3, Obese HEENT: Atraumatic, Normocephalic, PERRLA Neck: Supple, 2+ carotid pulse no bruit, JVD not distended Respiratory: Clear to auscultation bilaterally, Normal air movement Cardiovascular: No edema, Normal pulses, Regular rate/rhythm, Normal S1 S2 Capillary refill: <2 Seconds Gastrointestinal: Normal bowel sounds, Soft and benign, Non-distended Musculoskeletal: No clubbing, No swelling Integumentary: No rashes, No breakdown, No significant lesion Neurological: Normal speech, Normal strength at 5/5 x4 extr, Normal tone, Sensation intact Lymphatics: No axilla or inguinal lymphadenopathy Assessment And Plan - Plan New onset A-fib RVR: Will continue amiodarone drip, eliquis, and telemetry. Cardiology planned to do RINA cardioversion but her BP was hypotensive. Elevated Troponin: Will r/o ACS. Likely due to demand ischemia. Cardiology is following. Acute [place]: [place] [address]. Echo shows EF < 20%. Will resume lasix if MAP > 65. Cardiology is following. Will transfer pt to [facility] History of CVA: Will continue aspirin and statin. Continue fall precautions. Cardiogenic shock/ Hypotension: Will hold BP meds. Continue pressor. Will transfer pt to a higher level care. Dr. Hills wants pt to be transferred to [facility] Anxiety/depression: Will continue anxiolytics and antidepressants Insomnia: Will continue prn melatonin. Hypokalemia: K is 3.3. Will replate and monitor MAXIM on chronic kidney disease stage III: Cr is 1.79 <- 1.93. Will avoid nephrotoxins and monitor renal function. Nephrology is following Elevated liver enzymes: Will monitor LFTs while on amiodarone Tobacco abuse: Pt is a former smoker quit 1 year ago. She was advised to quit smoking. Morbid obesity/possible obstructive sleep apnea: Pt was advised to lose weight. She has outpatient bariatric follow-up. May need to start medications for weight loss in the setting of heart failure DVT ppx: heparin Dispo: Pending hospital course. Pt lives at home with her son and ambulates with a rolling walker. Waiting for a bed to become available at [facility]. Code: full
[2024-01-14] MEDS: FUROSEMIDE 100 MG in NA CHLORIDE 0.9% 90 ML IV SCH (12:18)
[2024-01-14] MEDS: POTASSIUM CL SA 10 MEQ TAB PO ONE (12:18)
--- NOTE | 2024-01-14 13:12 | PN ---
Date of Progress Note: 01/14/2024 Subjective: The patient was admitted to the hospital with anasarca, acute kidney injury secondary to cardiorenal syndrome. Patient's echocardiogram was done. Patient was started on diuresis, ejection fraction on 20% to 25%. The patient being diuresed well. The patient required pressor, still on pressor. Objective: General: When I saw the patient, patient lying in bed, shortness of breath. Vital Signs: Blood pressure of 102/82, pulse of 103, afebrile. Chest: Crackles, bilateral. Heart: S1, S2. Systolic murmur. Abdomen: Soft, nontender. Extremity: +2 edema. Neurologic: Alert. No focality. Laboratory Data: For the patient, WBC 8.5, sodium 136, potassium 3.3, bicarb 26, BUN 42, creatinine 1.7, calcium 7.8. Albumin 3.1. Current Medications: The patient on include midodrine 5 mg b.i.d., Levophed, atorvastatin, metoprolol 25 b.i.d., amiodarone, pantoprazole, Lasix 40 b.i.d. Assessment And Plan: 1. Acute kidney injury, small size kidney 8.1/9.1, with minimal proteinuria secondary to cardiorenal syndrome, poor perfusion, ATN, overvolume with the marginal blood pressure. I am going to go ahead and switch the Lasix to Lasix drip to establish better volume control without interfering with the blood pressure and we will follow up. 2. Hypertension, currently blood pressure on the lower side. The patient on cardiogenic shock. Continue Levophed. Continue midodrine. We will switch Lasix. 3. Atrial fibrillation, as by Primary and Cardiology. 4. Cardiogenic shock secondary to cardiogenic organ with acute kidney injury secondary to poor perfusion ATN and respiratory failure secondary to overvolume. I am going to change the Lasix to Lasix drip and we will follow up the patient. Continue midodrine. Continue weaning from Levophed. Follow up with Cardiology. 5. Hypokalemia. I will supplement. 6. Anasarca secondary to cardiorenal. Hypothyroidism had been ruled out. No significant proteinuria. We will continue diuresis as above. Time spent examining the patient [id number], reviewing data, lab and radiology, placing order, discussing the case with the patient, discussing the case with the steam trap worker including hospitalist and nursing staff with the dialysis nurse more than 35 minutes EDGAR Voice ID: [id number] Report ID: [id number] [id number]
--- NOTE | 2024-01-14 18:37 | P.PN ---
Subjective Date of Service: 01/14/24 Primary Care Provider: Dr Dodd Subjective: No new changes Review of Systems 10-point ROS is otherwise unremarkable Physical Examination - Vital Signs Temperature: 97.0 F Blood Pressure: 112/79 Pulse: 119 Respirations: 25 Pulse Ox (%): 96 - Physical Exam General: Alert, In no apparent distress HEENT: Atraumatic, PERRLA, EOMI Neck: Supple, JVD not distended Respiratory: Normal air movement, Crackles/rales Cardiovascular: Edema, Irregular heart rate/rhythm Gastrointestinal: Normal bowel sounds, No tenderness Musculoskeletal: No tenderness Integumentary: No rashes Neurological: Normal speech, Normal tone, Normal affect Lymphatics: No axilla or inguinal lymphadenopathy - Studies Medications List Reviewed: Yes Assessment And Plan - Current Problems (Diagnosis) (1) Acute on chronic heart failure Current Visit: Yes Status: Acute Plan: continue diuresis with Lasix drip 5 mg/hr per nephrology recommendations Continue to monitor input and output. Correct electrolytes. (2) Atrial fibrillation Current Visit: Yes Status: Acute Plan: Patient is on amiodarone drip, tired to do DCCV today but patient BP is too soft to tolerate sedation, HR is not too fast to cause her to be hypotensive so advise to look for other reasons and if patient is in acute CHF then DCCV at this point can through her into cardiogenic shock. continue Amiodarone continue Eliquis (3) HTN (hypertension) Current Visit: Yes Status: Acute Plan: D/C lopressor as patient BP is low. continue levophed support
[2024-01-14 21:13] VITALS: O2SAT 95
[2024-01-15 00:37] VITALS: BP 88/62; TEMP 96.9
--- NOTE | 2024-01-15 12:30 | P.DS ---
Admission Date: 01/10/24 Discharge Date: 01/15/24 Primary Care Provider: Dr Dodd Disposition: TRANSFER TO [facility] OTHER Discharge Condition: FAIR Brief History of Present Illness: 63-year-old female with past medical Cerebrovascular accident; Hypertensive disorder; Anxiety; Depressive disorder presents emergency room with chest pain. She reports chest pain is substernal, nonradiating, she reports onset 1 week ago. She reports reports symptoms getting progressively worse. She reports associated shortness of breath, shortness of breath worse with exertion, shortness of breath worse when laying flat. She denies history of CHF, she reports lower extremity edema that was worse over the last week. No use of diuretics she denies history of atrial fibrillation, no use of anticoagulation. She reports dizziness, weakness that is chronic from prior CVA, unsteady gait. She denies fever, abdominal pain, denies history of HI, plan to admit for new set onset A-fib RVR, chest pain,. Cardiology to consult, EKG 5 Rate is 131 beats/min. Rhythm is regular, A fib with No ectopy, Related ST and T wave changes. QRS [place] is Normal. QRS interval is analia, treated with Cardizem in the emergency room. 20 mg IV push x 1 vital signs 8 BP 108 / 89; Pulse 133; Resp 32; Temp 97.9(O); Pulse Ox 96% on R/A; Weight 154.22 kg; Height 5 ft. 2 in. ; Pain 8/10; laboratory evaluation elevated BNP 7869, elevated BUN and creatinine 21 creatinine 1.67, unknown baseline transaminitis ALT 65, troponin normal at 20.1 chest x-ray IMPRESSION: Possible pulmonary edema. The left lung base is obscured by underpenetration.exclude either an airspace process or pleural effusion. Hospital Course: Pt is a 63yo female with past medical history of cerebrovascular accident, Hypertensive disorder, Anxiety, and Depressive disorder who presented with chest pain. The chest pain was substernal, nonradiating in nature. It started 1 week before this admission and progressively worsened to be associated with SOB, dizziness, weakness and leg edema. On admission, p presented with new onset A. fib with RVR. EKG showed HR of 131without any ST changes. LAb studies showed elevated BNP 7869, elevated BUN and creatinine 21 creatinine 1.67, unknown baseline transaminitis ALT 65, troponin normal at 20.1. CXR showed possible pulmonary edema. While inpatient, rapid response was called because of tachycardia and SOB. She was transferred to the [facility] for higher level of care. We started amiodarone while waiting for cardiology eval. Pt was not able to do RINA cardioversion due to hypotension. Echo showed EF 10 - 20%. Cardiology recommended transfer to [facility] for cardiogenic shock treatment. We continued home meds for other chronic medical problems. Her transfer to [facility] was delayed for a few days due to lack of bed. She was in fair condition prior to transfer to [facility] on 01/15/24. Vital Signs/Physical Exam: Temp Pulse Resp BP Pulse Ox 96.9 F 92 H 24 H 88/62 L 95 01/15/24 00:00 01/15/24 01:00 01/15/24 01:00 01/15/24 01:00 01/15/24 01:00 Laboratory Data at Discharge: WBC 8.50 thou/uL (4.3-10.9) 01/13/24 04:35 Hgb 13.0 g/dL (12.0-15.0) 01/13/24 04:35 Hct 40.0 % (36.0-45.0) 01/13/24 04:35 Plt Count 246 thou/uL (152-406) 01/13/24 04:35 PT 15.3 SECONDS (9.5-12.5) H 01/12/24 03:05 INR 1.40 01/12/24 03:05 APTT 30.7 SECONDS (24.3-36.9) 01/12/24 03:05 Sodium 136 mEq/L (136-145) 01/13/24 04:35 Potassium 3.3 mEq/L (3.5-5.1) L D 01/13/24 04:35 BUN 42 mg/dL (7-18) H 01/13/24 04:35 Creatinine 1.79 mg/dL (0.55-1.02) H 01/13/24 04:35 Glucose 133 mg/dL (74-106) H 01/13/24 04:35 Phosphorus 5.8 mg/dL (2.5-4.9) H 01/12/24 03:05 Magnesium 2.1 mg/dL (1.6-2.4) 01/13/24 04:35 Total Bilirubin 1.1 mg/dL (0.2-1.0) H 01/13/24 04:35 AST 107 U/L (15-37) H 01/13/24 04:35 ALT 168 U/L (13-56) H 01/13/24 04:35 Alkaline Phosphatase 89 U/L (45-117) 01/13/24 04:35 Triglycerides 61 mg/dL (<150) 01/11/24 03:11 Cholesterol 77 mg/dL (<200) 01/11/24 03:11 HDL Cholesterol 47 mg/dL (40-60) 01/11/24 03:11 Cholesterol/HDL Ratio 1.64 01/11/24 03:11 Home Medications: Amlodipine Besylate [Norvasc] 5 mg PO DAILY 01/10/24 Rosuvastatin [Crestor*] 20 mg PO BEDTIME 01/10/24 Physician Discharge Instructions: Transfer to [facility] for further evaluation of cardiogenic shock. Follow up with PCP and Performance Improvement Manager upon dc from the hospital Diet: AHA Activity: Ad honey Followup: Candace Spencer [Primary Care Provider] -
== END 2024-01-15 01:40 | disposition short-term general hospital (02) | DRG 308 ==
LOC: ER 12:01 → ERHOLD 13:53 → 2ND 14:38 → 3RD-ICU 01-12 02:38
PROVIDERS: ADMIT Hospitalist; ATTEND Hospitalist
PROC: 02HV33Z Insertion of Infusion Device into Superior Vena Cava, Percutaneous Approach (ICD-10-PCS; principal; 2024-01-12)
PROC: 3E043XZ Introduction of Vasopressor into Central Vein, Percutaneous Approach (ICD-10-PCS; 2024-01-12)
PROC: 0T9B70Z Drainage of Bladder with Drainage Device, Via Natural or Artificial Opening (ICD-10-PCS; 2024-01-12)
DX: I48.91 Unspecified atrial fibrillation (principal); I50.23 Acute on chronic systolic (congestive) heart failure; R57.0 Cardiogenic shock; J96.00 Acute respiratory failure, unspecified whether with hypoxia or hypercapnia; N17.0 Acute kidney failure with tubular necrosis; I13.0 Hypertensive heart and chronic kidney disease with heart failure and stage 1 through stage 4 chronic kidney disease, or unspecified chronic kidney disease; Z68.44 Body mass index [BMI] 60.0-69.9, adult; I24.89 Other forms of acute ischemic heart disease; E66.01 Morbid (severe) obesity due to excess calories; N18.30 Chronic kidney disease, stage 3 unspecified; E87.6 Hypokalemia; G47.00 Insomnia, unspecified; F32.A Depression, unspecified; F41.9 Anxiety disorder, unspecified; I42.9 Cardiomyopathy, unspecified; G47.33 Obstructive sleep apnea (adult) (pediatric); R74.01 Elevation of levels of liver transaminase levels; Z88.5 Allergy status to narcotic agent; Z87.891 Personal history of nicotine dependence; Z86.73 Personal history of transient ischemic attack (TIA), and cerebral infarction without residual deficits; Z79.899 Other long term (current) drug therapy; Z91.199 Patient's noncompliance with other medical treatment and regimen due to unspecified reason
CPT/HCPCS: 36415; 71045; 76770; 80048; 80053; 80061; 80076; 81001; 82550; 82570; 82805; 83735; 83880; 84100; 84156; 84443; 84484; 85025; 85610; 85730; 93005; 93306; 94760; 96374; 99285; C9113; J0282; J1120; J1644; J1650; J1940; J2405; J3480; J7060